=== PATIENT | male | born 1975 | race African-American/Black ===

== ENCOUNTER 2017-11-28 00:01 | Emergency (ER) | payer OTHER | END 2017-11-28 01:01 | disposition home or self-care (01) | LOC: ER 01:01 | DX: B02.9 Zoster without complications (principal); G47.30 Sleep apnea, unspecified; J43.9 Emphysema, unspecified | CPT/HCPCS: 99283 ==

== ENCOUNTER 2019-02-19 00:15 | Emergency (ER) | payer SELFPAY ==
[~2019-02-19] VITALS: Ht 177.8 cm; Wt 136.1 kg
[~2019-02-19 00:15] MED LIST: ACYC800T PO; ALBU2.5V8 INH; AMOX1TAB61 PO; GABA300C18 PO; HYDR-3164 PO; LEVO750T31 PO; NAPR-514 PO
[2019-02-19 00:32] VITALS: BP 129/74
[2019-02-19] MEDS ORDERED: HYDROcodone/APAP 5/325MG 1 TAB TABLET PO ONE (01:00)
[2019-02-19] MEDS ORDERED: NAPROXEN 500 MG TABLET PO ONE (01:00)
--- NOTE | 2019-02-19 01:04 | PHYS DOC ---
Past Medical History Past Medical History: Pneumonia, Other Additional Past Medical Histor: sleep apnea, emphysema, shingles Past Surgical History: Other Additional Past Surgical Histo: "hand", "knee", "hernia" Alcohol Use: Rarely Drug Use: Marijuana Adult General Chief Complaint Chief Complaint: FOOT INJURY PAIN HPI HPI Patient is a 43 year old male who presents with 8 out of 10 sharp intermittent right foot right ankle pain that began 24 hours ago, patient states he woke up yesterday morning with pain to the right foot and right ankle. Patient denies any known injury. He states the pain is worse on weight-bearing though he is able to ambulate. Denies anything specific to be relieving the pain. Review of Systems Review of Systems Constitutional: Denies fever or chills [] Musculoskeletal: Reports right foot and right ankle pain Integument: Denies rash or skin lesions [] Neurologic: Denies headache, focal weakness or sensory changes [] All other systems were reviewed and found to be within normal limits, except as documented in this note. Current Medications Current Medications Current Medications Medications (Trade) Dose Ordered Sig/Michelle Start Time Stop Time Status Last Admin Dose Admin Acetaminophen/ Hydrocodone Bitart (Lortab 5/325) 2 tab 1X ONCE 02/19/19 01:00 02/19/19 01:01 DC 02/19/19 00:49 2 TAB Naproxen (Naprosyn) 500 mg 1X ONCE 02/19/19 01:00 02/19/19 01:01 DC 02/19/19 00:48 500 MG Allergies Allergies Allergies Coded Allergies Type Severity Reaction Last Updated Verified No Known Drug Allergies 10/05/14 No Physical Exam Physical Exam Constitutional: Well developed, well nourished, no acute distress, non-toxic appearance. [] Skin: Warm, dry, no erythema, no rash. [] Back: No tenderness, no CVA tenderness. [] Extremities: Overweight patient, no obvious deformity noted on the right lower extremity. Trace soft tissue swelling noted on the right lateral aspect of the ankle with tenderness on palpation of the right lateral ankle, no tenderness on palpation of the base of the fifth metatarsal or navicular bone of the right foot. No obvious tenderness on the right metatarsals. Full range of motion to the right foot and toes and ankle. +2 right pedal pulse. Cap refill less than 2 seconds the right toes. Sensation intact to the right toes. Neurologic: Alert and oriented X 3, normal motor function, normal sensory function, no focal deficits noted. [] Psychologic: Affect normal, judgement normal, mood normal. [] EKG EKG [] Radiology/Procedures Radiology/Procedures [] Course & Med Decision Making Course & Med Decision Making Pertinent Labs and Imaging studies reviewed. (See chart for details) This is a 43-year-old male patient presented to the ED today complaining of right foot and right ankle pain for a day. No known injury. Xrays are negative. D/c with diclofenac. F/u with Ortho in 1-2 weeks. Ice elevation encouraged. Dragon Disclaimer Dragon Disclaimer This electronic medical record was generated, in whole or in part, using a voice recognition dictation system. Departure Departure Impression: Primary Impression: Right ankle pain Additional Impression: Right foot pain Disposition: HOME, SELF-CARE Condition: STABLE Referrals: NO PCP (PCP) MILI RASHID II, MD follow up in 1-2 weeks Patient Instructions: Ankle Pain Additional Instructions: You were evaluated in the emergency room for right foot and right ankle pain. Try to ice and elevate the extremity. We provided you an orthopedic doctor, follow-up with them in 1-2 weeks if pain persists. Scripts Diclofenac Sodium (DICLOFENAC SODIUM) 50 Mg Tablet.dr 1 TAB PO BID, #14 TAB 0 Refills Prov: SP CARNES APRN 02/19/19 Problem Qualifiers Primary Impression: Right ankle pain Chronicity: acute Qualified Codes: M25.571 - Pain in right ankle and joints of right foot SP CARNES APRN February 19, 2019 01:04
[2019-02-19] MEDS ORDERED: DICL50TA4 PO (01:29)
--- NOTE | 2019-02-19 08:58 | RAD ---
Three-view right foot and ankle radiographs 02/19/2019 CLINICAL HISTORY: Right ankle and foot pain for one day. AP, lateral and oblique digital radiographs of the right ankle were obtained. AP, lateral and oblique digital radiographs of the right foot were obtained. The right ankle mortise is intact. No fracture or dislocation of the right ankle is seen. Mild to moderate degenerative changes are seen involving the right ankle joint. Mild hallux valgus deformity is noted. No fracture or dislocation of the right foot is seen. Mild to moderate degenerative changes are seen throughout the interphalangeal joints of the right foot along with the first MTP joint. Mild degenerative changes are seen involving the tarsal metatarsal joints. Minimal to mild enthesophyte formation is seen involving the posterior aspect of the right calcaneus. IMPRESSION: Degenerative changes are seen involving the right foot and ankle as discussed above. No acute osseous abnormality is seen. Electronically signed by: Diallo Allen MD (02/19/2019 8:55 AM) [facility]
== END 2019-02-19 02:30 | disposition home or self-care (01) ==
LOC: ER 01:26
DX: M25.571 Pain in right ankle and joints of right foot (principal); M79.671 Pain in right foot; E66.3 Overweight; Z68.41 Body mass index [BMI] 40.0-44.9, adult
CPT/HCPCS: 73610; 73630; 99284

== ENCOUNTER 2020-06-21 19:04 | Emergency (ER) | payer SELFPAY ==
[~2020-06-21] VITALS: Ht 175.3 cm; Wt 129.5 kg
[~2020-06-21 19:04] MED LIST changes: +DICL50TA4 PO
[2020-06-21 19:24] VITALS: BP 150/93
--- NOTE | 2020-06-21 20:49 | RAD ---
EXAM: 3 views of the left elbow DATE: 06/21/2020 7:59 PM INDICATION: Reason: l ELBOW PAIN AND SWELLING X 2 WEEKS NO KNOWN INJURY / Spl. Instructions: / History: COMPARISON: No Prior FINDINGS: No elbow joint effusion. No acute fracture or dislocation. Marked soft tissue swelling overlying the olecranon. IMPRESSION: 1. No acute fracture or dislocation. 2. Olecranon bursitis without internal calcifications or associated fracture. Electronically signed by: Ramone German MD (06/21/2020 8:46 PM) [facility]
[2020-06-21] MEDS ORDERED: CEPH-264 PO (21:02)
[2020-06-21] MEDS ORDERED: NAPR-514 PO (21:02)
[2020-06-21] MEDS ORDERED: METH4TAB2 PO (21:02)
--- NOTE | 2020-06-21 21:03 | PHYS DOC ---
Past Medical History Past Medical History: Pneumonia, Other Additional Past Medical Histor: sleep apnea, emphysema, shingles (MARTI CHRISTIANSON APRN) Past Surgical History: Other Additional Past Surgical Histo: hand,knee,hernia (MARTI CHRISTIANSON APRN) Smoking Status: Current Every Day Smoker Additional Information: 0.25 PPD Alcohol Use: Occasionally Drug Use: Marijuana (MARTI CHRISTIANSON APRN) General Adult EDM: Chief Complaint: ELBOW PROBLEM HPI: HPI: Patient is a 45 year old AA male who presents to the emergency department with complaints of left elbow swelling 2 weeks. Patient denies any known injury. He denies any decreased range of motion. Patient states that he does sleepwalk routinely but denies any injury or fall. Patient denies any itching, redness, or drainage at the site. He denies any fever. He currently rates the pain a 7 out of 10 on the pain scale he describes it as a constant pressure. He denies any alleviating factors, the pain is worse with palpation and movement. (MARTI CHRISTIANSON APRN) Review of Systems: Review of Systems: Constitutional: Denies fever or chills. [] Musculoskeletal: See HPI Integument: Denies rash. [] Neurologic: Denies focal weakness or sensory changes. [] Complete ROS is negative unless otherwise stated in the HPI. (MARTI CHRISTIANSON APRN) Heart Score: Risk Factors: Risk Factors: DM, Current or recent (<one month) smoker, HTN, HLP, family history of CAD, obesity. Risk Scores: Score 0 - 3: 2.5% MACE over next 6 weeks - Discharge Home Score 4 - 6: 20.3% MACE over next 6 weeks - Admit for Clinical Observation Score 7 - 10: 72.7% MACE over next 6 weeks - Early Invasive Strategies (MARTI CHRISTIANSON APRN) Allergies: Allergies: Allergies Coded Allergies Type Severity Reaction Last Updated Verified No Known Drug Allergies 10/05/14 No (MARTI CHRISTIANSON APRN) Physical Exam: PE: Constitutional: Well developed, well nourished, no acute distress, non-toxic appearance. [] HENT: Normocephalic, atraumatic, bilateral external ears normal, nose normal. [] Eyes: PERRLA, EOMI, conjunctiva normal, no discharge. [] Neck: Normal range of motion, no stridor. [] Cardiovascular:Heart rate regular rhythm Lungs & Thorax: Respirations even and unlabored, no retractions, no respiratory distress Skin: Warm, dry, no erythema, no rash. [] Extremities: L elbow: No cyanosis, ROM intact, lateral edema and TTP without crepitus or deformity concerning for olecranon bursitis Neurologic: Alert and oriented X 3, no focal deficits noted. [] Psychologic: Affect normal, judgement normal, mood normal. [] (MARTI CHRISTIANSON APRN) Current Patient Data: Vital Signs: Vital Signs Date Time Temp Pulse Resp B/P (MAP) Pulse Ox O2 Delivery O2 Flow Rate FiO2 06/21/20 19:24 98.2 90 17 150/93 (112) 96 Room Air 98.2 (MARTI CHRISTIANSON APRN) EKG: EKG: [] (MARTI CHRISTIANSON APRN) Radiology/Procedures: Radiology/Procedures: PROCEDURE: ELBOW LEFT 3V EXAM: 3 views of the left elbow DATE: 06/21/2020 7:59 PM INDICATION: Reason: l ELBOW PAIN AND SWELLING X 2 WEEKS NO KNOWN INJURY / Spl. Instructions: / History: COMPARISON: No Prior FINDINGS: No elbow joint effusion. No acute fracture or dislocation. Marked soft tissue swelling overlying the olecranon. IMPRESSION: 1. No acute fracture or dislocation. 2. Olecranon bursitis without internal calcifications or associated fracture.[] (MARTI CHRISTIANSON APRN) Course & Med Decision Making: Course & Med Decision Making Pertinent Labs and Imaging studies reviewed. (See chart for details) [] (MARTI CHRISTIANSON APRN) Course & Med Decision Making I have reviewed the PA/RAIL DIRECTOR's note and Plan of Care. I was available for consultation as needed during the patient's visit in the emergency department. I agree with the clinical impression, plans and disposition. (DEONDRE ANDREA MD) Natalee Disclaimer: Natalee Disclaimer: This electronic medical record was generated, in whole or in part, using a voice recognition dictation system. (MARTI CHRISTIANSON APRN) Departure Departure Impression: Primary Impression: Olecranon bursitis, left elbow Disposition: HOME, SELF-CARE Condition: STABLE Referrals: NO PCP (PCP) MILI RASHID II, MD Patient Instructions: Olecranon Bursitis, [id number] Additional Instructions: Fill prescription(s) and use as directed. Recommend application of ice, elevation, and rest of affected extremity. Follow-up with Dr Rashid or 1 of the clinics below for further treatment.. Return to the ER if your symptoms worsen or fever develops. [facility] [address] [place] [address] [facility] [address] [place] [address] [facility] [address] [place] [address] [facility] [address] [place] [address] [facility] [address] [place] [address] [facility] [address] [place] [address] [facility] [address] [place] [address] [facility] [address] [place] [address] [facility] [address] [place] [address] [facility] [address] [place] [address] Scripts Cephalexin (KEFLEX) 500 Mg Capsule 500 MG PO QID for 7 Days, #28 CAP 0 Refills Prov: MARTI CHRISTIANSON [employer]ER 06/21/20 Methylprednisolone (MEDROL) 4 Mg Tab.ds.pk 1 PKG PO UD for 6 Days, #1 PKG 0 Refills Prov: MARTI CHRISTIANSON [employer] 06/21/20 Naproxen (NAPROXEN) 500 Mg Tablet 1 TAB PO BID PRN for PAIN for 10 Days, #20 TAB 0 Refills Prov: MARTI CHRISTIANSON APRN 06/21/20 Justicifation of Admission Dx: Justifications for Admission: Justification of Admission Dx: No (MARTI CHRISTIANSON APRN) MARTI CHRISTIANSON APRN Jun 21, 2020 21:03 DEONDRE ANDREA MD Jun 21, 2020 21:14
== END 2020-06-21 21:13 | disposition home or self-care (01) ==
LOC: ER 19:04
DX: M70.22 Olecranon bursitis, left elbow (principal); F17.200 Nicotine dependence, unspecified, uncomplicated
CPT/HCPCS: 73080; 99283

== ENCOUNTER 2021-01-23 21:16 | Emergency (ER) | payer SELFPAY ==
[~2021-01-23] VITALS: Ht 172.7 cm; Wt 115.9 kg
[~2021-01-23 21:16] MED LIST changes: -ACYC800T PO; +ACYC800T88 PO; +CEPH-264 PO; +METH4TAB2 PO
[2021-01-23] MEDS: ACETAMINOPHEN 500 MG TABLET PO ONE (23:39)
--- NOTE | 2021-01-24 00:05 | RAD ---
CT Head W/O Contrast: History: Reason: FALL / Spl. Instructions: / History: Comparison: none Axial images were obtained without contrast. The [place] and white matter appears normal and symmetrical for the patients age. There is no mass effe ct, extraaxial fluid collections or hydrocephalus. There is no gross bleed. There is no focal loss of [place]-white matter distinction to suggest acute ischemia, i.e. stroke. Impression: No acute findings. End impression CT C-Spine without contrast: Clinical History: Reason: FALL / Spl. Instructions: / History: Technique: Axial helical images of the cervical spine were obtained without contrast, axial coronal and sagittal reconstruction was performed. Findings: There is no loss of vertebral body stature. There is no prevertebral soft tissue swelling. The vert ebral bodies are well aligned. The C1-C2 relationship is normal. The visualized osseous structures a ppear normal. There is mild reversal of the normal cervical lordosis which can be positional or can b e secondary to muscle spasm. Evaluation of the central canal is limited without contrast. Impression: No acute findings. Clinical correlation suggested. PQRS Compliance Statement: One or more of the following individualized dose reduction techniques were utilized for this examinat ion: 1. Automated exposure control 2. Adjustment of the mA and/or kV according to patient size 3. Use of iterative reconstruction technique Electronically signed by: Dewey Sandhu III, MD (01/24/2021 12:02 AM) [facility]
--- NOTE | 2021-01-24 00:16 | PHYS DOC ---
Past Medical History Past Medical History: Pneumonia, Other Additional Past Medical Histor: sleep apnea, emphysema, shingles Past Surgical History: Other Additional Past Surgical Histo: hand,knee,hernia Smoking Status: Current Every Day Smoker Alcohol Use: Occasionally Drug Use: Marijuana Adult General Chief Complaint Chief Complaint: MECHANICAL FALL HPI HPI Patient is a 45 year old male who denies any significant past medical history now presents emergency department complaining of left-sided facial pain as well as neck pain after reported fall. Patient states he thinks he fell having issues with sleepwalking over the last few days. Also notes that yesterday intermittent episodes where he feels like he falls asleep while in the process of doing something. Patient states he was getting up to the bathroom and that he thinks that he fell asleep striking his head against the desk. Started buckner ving left-sided facial neck pain. Denies any loss conscious, nausea, vomiting, fever or chills. Review of Systems Review of Systems Constitutional: Denies fever or chills [] Eyes: Denies change in visual acuity, redness, or eye pain [] HENT: Denies nasal congestion or sore throat [] Respiratory: Denies cough or shortness of breath [] Cardiovascular: No additional information not addressed in HPI [] GI: Denies abdominal pain, nausea, vomiting, bloody stools or diarrhea [] : Denies dysuria or hematuria [] Musculoskeletal: Denies back pain or joint pain [] Integument: Denies rash or skin lesions [] Neurologic: Denies headache, focal weakness or sensory changes [] Endocrine: Denies polyuria or polydipsia [] All other systems were reviewed and found to be within normal limits, except as documented in this note. Current Medications Current Medications Current Medications Medications (Trade) Dose Ordered Sig/Michelle Start Time Stop Time Status Last Admin Dose Admin Acetaminophen (Tylenol) 1,000 mg 1X ONCE 01/23/21 23:15 01/23/21 23:18 DC 01/23/21 23:39 1,000 MG Allergies Allergies Allergies Coded Allergies Type Severity Reaction Last Updated Verified No Known Drug Allergies 10/05/14 No Physical Exam Physical Exam Constitutional: Well developed, well nourished, no acute distress, non-toxic appearance. [] HENT: Normocephalic, left periorbital swelling, bilateral external ears normal, oropharynx moist, no oral exudates, nose normal. [] Eyes: PERRLA, EOMI, conjunctiva normal, no discharge. [] Neck: Normal range of motion, mild C2 tenderness, supple, no stridor. [] Cardiovascular:Heart rate regular rhythm, no murmur [] Lungs & Thorax: Bilateral breath sounds clear to auscultation [] Abdomen: Bowel sounds normal, soft, no tenderness, no masses, no pulsatile masses. [] Skin: Warm, dry, no erythema, no rash. [] Back: No tenderness, no CVA tenderness. [] Extremities: No tenderness, no cyanosis, no clubbing, ROM intact, no edema. [] Neurologic: Alert and oriented X 3, normal motor function, normal sensory function, no focal deficits noted. [] Psychologic: Affect normal, judgement normal, mood normal. [] Current Patient Data Vital Signs Vital Signs Date Time Temp Pulse Resp B/P (MAP) Pulse Ox O2 Delivery O2 Flow Rate FiO2 01/23/21 22:07 80 18 117/91 (100) 96 Room Air EKG EKG [] Radiology/Procedures Radiology/Procedures [] Course & Med Decision Making Course & Med Decision Making Pertinent Labs and Imaging studies reviewed. (See chart for details) 45-year-old male presenting the emergency department after a fall secondary to sleep disorder. Will obtain a CT scan of the head and cervical spine is negative feel the patient is to be discharged with PCP follow-up for possible sleepwalking. Dragon Disclaimer Dragon Disclaimer This electronic medical record was generated, in whole or in part, using a voice recognition dictation system. Departure Departure Impression: Primary Impression: Acute head injury Disposition: HOME / SELF CARE / HOMELESS Condition: STABLE Referrals: MAHENDRA JAVIER MD Patient Instructions: Head Injury, Adult Additional Instructions: EMERGENCY DEPARTMENT GENERAL DISCHARGE INSTRUCTIONS Thank you for coming to [facility] Emergency Department (ED) today and trusting us with you care. We trust that you had a positive experience in our Emergency Department. If you wish to speak to the department management, you may call the Director at [phone]. YOUR FOLLOW UP INSTRUCTIONS ARE FOLLOWS: 1. Do you have a private Doctor? If you do not have a private doctor, please ask for a resource list of physicians or clinics that may be able to assist you with follow up care. 2. The Emergency Physicain has interpreted your x-rays. The X-Ray specialist will also review them. If there is a change in the findings, you will be notified in 48 hours when at all possible. 3. A lab test or culture has been done, your results will be reviewed and you will be notified if you need a change in treatment. ADDITIONAL INSTRUCTIONS AND INFORMATION: 1. Your care today has been supervised by a physician who is specially trained in emergency care. Many problems require more than one evaluation for a complete diagnosis and treatment. We recommend that you schedule your follow up appointment as recommended to ensure complete treatment of you illness or injury. If you are unable to obtain follow up care and continue to have a problem, or if your condition worsens, we recommend that you return to the ED. 2. We are not able to safely determine your condition over the phone nor are we able to give sound medical advice over the phone. For these safety reasons, if you call for medical advice we will ask you to come to the ED for further evaluation. 3. If you have any questions regarding these discharge instructions please call the ED at [phone]. SAFETY INFORMATION: In the interest of safety, wellness, and injury prevention; we encourage you to wear your sealbelt, if you smoke; quite smoking, and we encourage family to use a protective helmet for bicycling and other sporting events that present an increased risk for head injury. IF YOUR SYMPTOMS WORSEN OR NEW SYMPTOMS DEVELOP, OR YOU HAVE CONCERNS ABOUT YOUR CONDITION; OR IF YOUR CONDITION WORSENS WHILE YOU ARE WAITING FOR YOUR FOLLOW UP APPOINTMENT; EITHER CONTACT YOUR PRIMARY CARE DOCTOR, THE PHYSICIAN WHOSE NAME AND NUMBER YOU WERE GIVEN, OR RETURN TO THE ED IMMEDIATELY. JOSELIN CARRILLO MD Jan 24, 2021 00:16
[2021-01-24 00:33] VITALS: BP 134/75
== END 2021-01-24 00:41 | disposition home or self-care (01) ==
LOC: ER 21:16
DX: S09.8XXA Other specified injuries of head, initial encounter (principal); M54.2 Cervicalgia; F17.200 Nicotine dependence, unspecified, uncomplicated; F12.90 Cannabis use, unspecified, uncomplicated; Z98.890 Other specified postprocedural states; W18.39XA Other fall on same level, initial encounter; Y93.89 Activity, other specified; Y92.89 Other specified places as the place of occurrence of the external cause; Y99.8 Other external cause status
CPT/HCPCS: 70450; 72125; 99285

== ENCOUNTER 2021-01-28 21:57 | Emergency (ER) | payer SELFPAY ==
[~2021-01-28] VITALS: Ht 175.3 cm; Wt 117.7 kg
--- NOTE | 2021-01-28 22:33 | PHYS DOC ---
Past Medical History Past Medical History: Pneumonia, Other Additional Past Medical Histor: sleep apnea, emphysema, shingles Past Surgical History: Other Additional Past Surgical Histo: hand,knee,hernia Smoking Status: Current Every Day Smoker Alcohol Use: Occasionally Drug Use: Marijuana General Adult EDM: Chief Complaint: MEDICAL CLEARANCE HPI: HPI: Patient is a 45 year old male presents presents requesting a note to return to work. Patient had a syncopal episode on the . Patient states he had just finished going to the bathroom and was half asleep fell forward hit his face on a table. Fall resulted swelling of his left periorbital region. Patient was evaluated in the emergency department and diagnosed with a concussion. Patient states he feels better and would like to go back to work. He states work is requesting a return to work note. Review of Systems: Review of Systems: Review of systems: Constitutional symptoms- No fever, no chills. Eyes- No Discharge, No Visual Loss positive left periorbital contusion Respiratory symptoms- No shortness of breath, No wheezing, No Dyspnea on Exertion Cardiovascular Systems; No chest pain, No Palpitations, No syncope Gastrointestinal symptoms: NO abdominal pain, no nausea, no vomiting or diarrhea. Genitourinary symptoms: No dysuria. Musculoskeletal symptoms: No back pain No extremity pain. NEUROLOGICAL Symptoms: No headache, no generalized weakness; No focal Weakness Heart Score: C/O Chest Pain: N/A Risk Factors: Risk Factors: DM, Current or recent (<one month) smoker, HTN, HLP, family history of CAD, obesity. Risk Scores: Score 0 - 3: 2.5% MACE over next 6 weeks - Discharge Home Score 4 - 6: 20.3% MACE over next 6 weeks - Admit for Clinical Observation Score 7 - 10: 72.7% MACE over next 6 weeks - Early Invasive Strategies Allergies: Allergies: Allergies Coded Allergies Type Severity Reaction Last Updated Verified No Known Drug Allergies 10/05/14 No Physical Exam: PE: General: alert, no acute distress. Skin: warm, dry and intact. Head:: Normocephalic, atraumatic. Neck: Trachea midline. Eyes: EOMI, Normal conjunctiva, No drainage swelling left periorbital. Patient able to completely open left eye, patient states normal vision CARDIOVASCULAR: Regular rate and rhythm RESPIRATORY: No respiratory distress Back: Full range of motion. MUSCULOSKELETAL: Full range of motion of bilateral upper and lower extremities. GASTROINTESTINAL: Abdomen soft without rebound or guarding. NEUROLOGICAL: Alert and noted to person, place and time. No neurological deficits observed Psychiatric: Cooperative. Normal judgment Current Patient Data: Vital Signs: Vital Signs Date Time Temp Pulse Resp B/P (MAP) Pulse Ox O2 Delivery O2 Flow Rate FiO2 01/28/21 22:15 98.2 85 18 132/74 (93) 94 Room Air 98.2 EKG: EKG: [] Radiology/Procedures: Radiology/Procedures: [] Course & Med Decision Making: Course & Med Decision Making Pertinent Labs and Imaging studies reviewed. (See chart for details) [] Dragon Disclaimer: Dragon Disclaimer: This electronic medical record was generated, in whole or in part, using a voice recognition dictation system. Departure Departure Impression: Primary Impression: Medically fit for discharge Additional Impressions: Well adult exam Facial contusion Disposition: HOME / SELF CARE / HOMELESS Condition: STABLE Referrals: NO PCP (PCP) Patient Instructions: Exam, Normal, Adult GEENA HUANG I DO Jan 28, 2021 22:33
== END 2021-01-28 22:48 | disposition home or self-care (01) ==
LOC: ER 21:57
DX: Z00.00 Encounter for general adult medical examination without abnormal findings (principal); S05.12XD Contusion of eyeball and orbital tissues, left eye, subsequent encounter; R55 Syncope and collapse; F17.210 Nicotine dependence, cigarettes, uncomplicated; W18.09XD Striking against other object with subsequent fall, subsequent encounter
CPT/HCPCS: 99284